=== PATIENT | female | born 1935 | race Caucasian/White ===

== ENCOUNTER 2022-09-10 01:46 | Observation (INO) | payer MEDICARE, SELFPAY ==
[2022-09-10] VITALS (8 sets, daily range): BP systolic 169–189; BP diastolic 80–98; PULSE 66–74; RESP 12–21; TEMP 36.6–37.1; O2SAT 93–100; BMI 24.0
[2022-09-10] MEDS: sodium chlor 0.9% + KCl 20 mEq 20 MEQ/1,000 ML BAG 75 MEQ IV (02:25)
[2022-09-10] MEDS: ondansetron 2 mg/ML SDV 2 mL 4 MG IVP (04:26)
--- NOTE | 2022-09-10 07:30 | ANES.PREANE2 ---
Pre-Anesthetic Assessment Height/Weight: Height 1.54 m Weight 56.756 kg Temp Pulse Resp BP Pulse Ox O2 Del Method O2 Flow Rate 98.0 F 70 21 H 189/98 99 Nasal Cannula 2.5 09/10/22 04:28 09/10/22 04:28 09/10/22 04:28 09/10/22 04:28 09/10/22 04:28 09/10/22 04:28 09/10/22 04:28 Preop Diagnosis: food bolus Operation Date: 09/10/22 11:00 Proposed Procedures p Foreign Body Removal(Not Applicable) - Ivan Gaming DO Familial anesthetic complications: none Was Beta Opal taken within 24 hours: N/A Was Clonidine taken within 24 hours: N/A Social No alcohol and No tobacco Exam alert, oriented x 3, clear to auscultation bilaterally and regular rate & rhythm Airway Submandibular: within normal limits Cervical ROM: within normal limits Mallampati: Class II Dentition: full Pulmonary None reported CV/HEM None reported None reported Hepatic None reported GI None reported Metabolic None reported Musc/skel Lower Back Pain and Osteoarthritis/DJD Neuropsych None reported Anesthetic Plan ASA status: 2 Anesthesia: General Risk of > 500 ml blood loss (7ml/kg in children): No Medications/Allergies Allergies Allergy/AdvReac Type Severity Reaction Status Date / Time No Known Allergies Allergy Verified 09/10/22 03:28 Current Medications Generic Name Dose Route Start Last Admin Trade Name Freq PRN Reason Stop Dose Admin Potassium Chloride/Sodium Chloride 20 meq in 1,000 mls @ 75 mls/hr 09/10/22 02:00 09/10/22 02:25 Sodium Chlor 0.9% + Kcl 20 Meq IV 75 mls/hr .[id number] [place] Administration Ondansetron HCl 4 mg 09/10/22 01:51 09/10/22 04:26 Ondansetron 2 Mg/Ml Sdv 2 Ml IVP 4 mg Q4H PRN Administration NAUSEA AND VOMITING Data Anesthesia Cardiac Studies: No Data to Display
[2022-09-10] MEDS: sodium chloride 0.9% 1,000 ML 30 ML IV (07:41)
--- NOTE | 2022-09-10 07:46 | ECG_ITS ---
[facility] Test Date: 2022-09-10 Pat Name: Aretha Tavarez Department: Room: 251 Gender: Female Multimedia Specialist: : [id number] Requested By: Rosie Vincent Order Number: [id number] Marty MD: Tobi Govea M.D. Measurements Intervals Rogers Rate: 72 P: 33 OR: 143 QRS: -12 QRSD: 89 T: 23 QT: 318 QTc: 349 Interpretive Statements SINUS RHYTHM NONSPECIFIC T-WAVE ABNORMALITY No previous ECG available for comparison Electronically Signed On 09-10-2022 12:28:52 CDT by Tobi Govea M.D. [id number]
--- NOTE | 2022-09-10 08:54 | PM.HP ---
Providers/Chief Complaint Admitting Physician: Ivan Gaming DO Primary Care Provider: Crystal Barrera MD Chief Complaint: food bolus History of Present Illness Aretha Tavarez is a 86 year old female who presented to an outside hospital with an esophageal food bolus. She is unable to swallow her saliva. She was then sent here. This happened 1 year ago and she had clearance with EGD. She has not had a formal EGD since. Review of Systems General: Reports: 10 or more systems reviewed and unremarkable except in HPI and below Medications/Allergies Allergies Allergy/AdvReac Type Severity Reaction Status Date / Time No Known Allergies Allergy Verified 09/10/22 03:28 Vitals/I&O/Wt Last Vital Signs Temp 98.0 F 09/10/22 04:28 Pulse 70 09/10/22 04:28 Resp 21 H 09/10/22 04:28 BP 189/98 09/10/22 04:28 Pulse Ox 99 09/10/22 04:28 O2 Del Method Nasal Cannula 09/10/22 04:28 O2 Flow Rate 2.5 09/10/22 04:28 09/09/22 09/10/22 09/10/22 22:59 06:59 14:59 Output Total 250 / 250 Balance -250 / -250 Weight last 48 hrs Weight 125 lb 2 oz Physical Exam Narrative: General : Patient is well developed , no acute distress, oriented x3 Head : Normal cephalic, a-traumatic. Ears : Pinnae and external canal are normal. Hearing is normal. Eyes : PERRLA, Sclera and injection are normal. No conjunctival discharge. Nose : Mucous membranes are without erythema. Throat : buccal mucosa is normal, gums are without significant recession or hypertrophy. Lungs : Equal chest rise bilaterally, no use of accessory muscles, trachea is midline. Cor : Rate and rhythm are normal. Abdomen : Soft, ND, NT, no g/r/m Extremities : No edema, no cyanosis or clubbing, dorsalis pedis pulses are present bilaterally, non-tender to palpation of calves. Upper extremities are normal bilaterally. Back : non-tender to palpation, no CVA tenderness. Neuro : CN II - XII intact, Upper and lower extremities have equal and full strength A&P Assessment and plan (1) Food impaction of esophagus: Plan EGD with clearance of foreign body The risks and benefits of the procedure, including bleeding, infection, intestinal perforation requiring surgery, missed lesion were explained to the patient. The patient is understanding of the risks and wishes to proceed. Attestations Medical Necessity Statement*: She will go home after the procedure Coding Level of Care Code Acute Code for Chg Fwd Diagnoses Food impaction of esophagus T18.128A
--- NOTE | 2022-09-10 09:06 | PC.PHAR ---
Addendum entered by Elina Villegas 09/10/22 09:26: MEDICATIONS ENTERED ARE WHAT THE PTS PHARMACY STATES THEY HAVE FILLED RECENTLY FOR THE PT- Addendum entered by Elina Villegas 09/10/22 09:24: *EGD Original Note: pt was getting a edg-will try to get med rec when pt is done with edg
--- NOTE | 2022-09-10 13:20 | ANE.PACU2 ---
Inpatient post-anesthesia follow up: Airway intact: Yes Vital signs: Temperature 98.7 F Pulse Rate 72 Respiratory Rate 18 Blood Pressure 178/89 Pulse Oximetry 93 Oxygen Delivery Me thod Room Air Oxygen Flow Rate 4 Fraction of Inspir ed Oxygen Hydration adequate: Yes Nausea and vomiting: Yes Pain level: 1 Mental status: Baseline
== END 2022-09-10 10:57 | disposition home or self-care (01) ==
PROVIDERS: Admitting Provider Surgery; PCP Family Medicine; Visit Provider Surgery
DX: T18.128A Food in esophagus causing other injury, initial encounter (principal); Y99.9 Unspecified external cause status; K22.2 Esophageal obstruction; K29.50 Unspecified chronic gastritis without bleeding; B96.81 Helicobacter pylori [H. pylori] as the cause of diseases classified elsewhere
CPT/HCPCS: 43239; 43247; 88305; 88342; 93005; G0378; G0379; J0330; J2405; J2704; J3010; J3480; J7030

== ENCOUNTER → 2022-09-23 13:49 | Outpatient (BNVA) | payer MEDICARE, SELFPAY | PROVIDERS: PCP Family Medicine; Visit Provider Surgery | DX: K21.9 Gastro-esophageal reflux disease without esophagitis (principal); R13.10 Dysphagia, unspecified | CPT/HCPCS: 99203 ==

== ENCOUNTER 2022-10-02 08:07 | Day surgery (SDC) | payer MEDICARE, SELFPAY ==
[2022-10-01 08:56] VITALS: BMI 23.6
[2022-10-02 08:21] VITALS: BP 199/94; PULSE 64; RESP 18; TEMP 37.2; O2SAT 97
[2022-10-02] MEDS: sodium chloride 0.9% 1,000 ML 30 ML IV (08:26)
--- NOTE | 2022-10-02 08:34 | W.PM.OPSUD ---
Surgery/Procedure H&P Update DATE OF PROCEDURE: October 02, 2022 DATE H&P PERFORMED: 09/23/22 H&P UPDATE INFORMATION: I have reviewed H&P completed within last 30 days, I have examined patient prior to procedure and No changes to prior documentation PLANNED PROCEDURE: Operation Date: 10/02/22 09:30 Proposed Procedures p [id number]= egd w/ Balloon Dial R13.10(Not Applicable) - Ivan Gaming, DO
--- NOTE | 2022-10-02 08:37 | ANES.PREANE2 ---
Pre-Anesthetic Assessment Height/Weight: Height 1.55 m Weight 56.699 kg Temp Pulse Resp BP Pulse Ox O2 Del Method 98.9 F 64 18 199/94 97 Room Air 10/02/22 08:21 10/02/22 08:21 10/02/22 08:21 10/02/22 08:21 10/02/22 08:21 10/02/22 08:21 Preop Diagnosis: dysphagia Operation Date: 10/02/22 09:30 Proposed Procedures p [id number]= egd w/ Balloon Dial R13.10(Not Applicable) - Ivan Gaming DO Familial anesthetic complications: none Was Beta Opal taken within 24 hours: N/A Was Clonidine taken within 24 hours: N/A Last intake: Intake Last Liquid Date 10/01/22 Last Liquid Time 23:00 Last Solid Date 10/01/22 Last Solid Time 19:00 Social No alcohol and No tobacco Exam alert, oriented x 3, clear to auscultation bilaterally and regular rate & rhythm Airway Submandibular: within normal limits Cervical ROM: within normal limits Mallampati: Class II Dentition: full Pulmonary None reported CV/HEM Hypertension None reported Hepatic None reported GI Gastroesophageal Reflux Disease (controlled) Metabolic None reported Musc/skel Lower Back Pain and Osteoarthritis/DJD Neuropsych None reported Anesthetic Plan ASA status: 2 Anesthesia: MAC Risk of > 500 ml blood loss (7ml/kg in children): No Medications/Allergies Home Medications Medication Instructions Recorded Confirmed Last Taken Type hydrocodone 5 mg-acetaminophen 325 2 tab PO Q8H PRN Pain 09/10/22 10/01/22 10/01/22 History mg tablet trazodone 50 mg tablet 75 mg PO BEDTIME 09/10/22 10/01/22 10/01/22 History pantoprazole 40 mg tablet,delayed 40 mg PO BID 6 weeks #84 tabs 09/23/22 10/01/22 10/01/22 Rx release (Protonix) Allergies Allergy/AdvReac Type Severity Reaction Status Date / Time No Known Allergies Allergy Verified 10/01/22 08:53 Current Medications Generic Name Dose Route Start Last Admin Trade Name Freq PRN Reason Stop Dose Admin Sodium Chloride 1,000 mls @ 30 mls/hr 10/02/22 08:15 10/02/22 08:26 Sodium Chloride 0.9% IV 10/03/22 08:14 30 mls/hr .Q24H [place] Administration Data Anesthesia Cardiac Studies: No Data to Display
[2022-10-02 09:22] VITALS: BP 148/76; PULSE 78; RESP 14; TEMP 36.8; O2SAT 98
--- NOTE | 2022-10-02 14:13 | ANE.PACU2 ---
Inpatient post-anesthesia follow up: Airway intact: Yes Vital signs: Temperature 98.3 F Pulse Rate 78 Respiratory Rate 14 Blood Pressure 148/76 Pulse Oximetry 98 Oxygen Delivery Me thod Nasal Cannula Oxygen Flow Rate 3 Fraction of Inspir ed Oxygen Hydration adequate: Yes Nausea and vomiting: No Pain level: 1 Mental status: Baseline
== END 2022-10-02 10:30 | disposition home or self-care (01) ==
PROVIDERS: PCP Family Medicine; Visit Provider Surgery
DX: R13.10 Dysphagia, unspecified (principal); I10 Essential (primary) hypertension; K21.9 Gastro-esophageal reflux disease without esophagitis; Z79.891 Long term (current) use of opiate analgesic; K22.2 Esophageal obstruction; K29.50 Unspecified chronic gastritis without bleeding
CPT/HCPCS: 43239; 43249; 88305; J2704; J7030

== ENCOUNTER → 2023-02-18 12:54 | Outpatient (BNVA) | payer MEDICARE, SELFPAY | PROVIDERS: PCP Family Medicine; Visit Provider Nurse Practitioner Family | DX: Z85.828 Personal history of other malignant neoplasm of skin (principal); L82.0 Inflamed seborrheic keratosis; L57.0 Actinic keratosis; I83.92 Asymptomatic varicose veins of left lower extremity; L82.1 Other seborrheic keratosis; L57.8 Other skin changes due to chronic exposure to nonionizing radiation; L81.4 Other melanin hyperpigmentation; D22.4 Melanocytic nevi of scalp and neck | CPT/HCPCS: 17000; 17110; 99203 ==

== ENCOUNTER → 2023-09-03 08:48 | Outpatient (BNVA) | payer MEDICARE, SELFPAY | PROVIDERS: PCP Family Medicine; Referring Provider Neurological Surgery; Visit Provider Anesthesiology Pain Medicine | DX: M47.816 Spondylosis without myelopathy or radiculopathy, lumbar region | CPT/HCPCS: 99204 ==

== ENCOUNTER → 2024-05-06 10:16 | Outpatient (BNVA) | payer MEDICARE, SELFPAY | PROVIDERS: PCP Family Medicine; Visit Provider Nurse Practitioner Family | DX: L57.8 Other skin changes due to chronic exposure to nonionizing radiation (principal); L81.4 Other melanin hyperpigmentation; D22.5 Melanocytic nevi of trunk; L82.1 Other seborrheic keratosis; I83.93 Asymptomatic varicose veins of bilateral lower extremities; Z08 Encounter for follow-up examination after completed treatment for malignant neoplasm; Z85.828 Personal history of other malignant neoplasm of skin; L82.0 Inflamed seborrheic keratosis; R20.8 Other disturbances of skin sensation; L53.8 Other specified erythematous conditions; R58 Hemorrhage, not elsewhere classified | CPT/HCPCS: 17110; 99213 ==

== ENCOUNTER → 2025-01-19 15:18 | Outpatient (BNVA) | payer MEDICARE, SELFPAY | PROVIDERS: PCP Family Medicine; Visit Provider Nurse Practitioner Family | DX: L81.4 Other melanin hyperpigmentation (principal); L82.1 Other seborrheic keratosis; T14.8XXA Other injury of unspecified body region, initial encounter; X58.XXXA Exposure to other specified factors, initial encounter; L91.8 Other hypertrophic disorders of the skin; R20.8 Other disturbances of skin sensation; L29.89 Other pruritus; Z78.9 Other specified health status; L53.8 Other specified erythematous conditions | CPT/HCPCS: 17110; 99213 ==